=== PATIENT | male | born 1935 | race Asian ===

== ENCOUNTER 2019-05-12 03:30 | Emergency (ER) | payer MEDICAID, OTHER ==
[~2019-05-12] VITALS: Ht 170.2 cm; Wt 56.8 kg
[2019-05-12] MEDS ORDERED: ASPI81 PO (03:44)
[2019-05-12] MEDS ORDERED: ATOR-2 PO (03:44)
[2019-05-12] MEDS ORDERED: LOSA50TA64 PO (03:44)
[2019-05-12 04:50] LABS: BASOPHILS % (AUTO) 0.7 % (0.0-2.0); EOSINOPHILS % (AUTO) 2.6 % (1.0-6.0); HEMOGLOBIN 13.6 g/dL (13.5-17.5); LYMPHOCYTES # (AUTO) 1.8 K/uL (1.0-4.8); MEAN CORPUSCULAR HEMOGLOBIN 30.7 pg (26.0-34.0); MEAN CORPUSCULAR HGB CONC 32.4 G/dL (31.0-37.0); MEAN CORPUSCULAR VOLUME 95 fL (80-100); MONOCYTES # (AUTO) 0.7 K/uL (0.1-1.0); MONOCYTES % (AUTO) 8.9 % (2.0-9.0); NEUTROPHILS # (AUTO) 5.2 K/uL (1.8-7.7); NEUTROPHILS % (AUTO) 64.8 % (40.0-70.0); PLATELET COUNT (AUTO) 314 K/uL (150-450); RED BLOOD CELL COUNT(AUTO) 4.44 MIL/uL (4.50-5.90); RED CELL DISTRIBUTION WIDTH 13.2 % (11.5-14.5)
[2019-05-12 04:58] LABS: CALCIUM, TOTAL 9.3 mg/dL (8.8-10.5); CREATININE 1.38 mg/dL (0.60-1.30); POTASSIUM 4.1 mmol/L (3.5-5.1)
[2019-05-12 05:02] LABS: INR 0.9 (0.9-1.1); PROTHROMBIN TIME 9.8 SEC (9.4-11.6)
[2019-05-12 05:04] LABS: ALBUMIN 3.4 g/dL (3.4-5.0); BILIRUBIN,TOTAL 0.3 mg/dL (0.1-1.0); TOTAL PROTEIN, SERUM 7.6 g/dL (6.4-8.2)
[2019-05-12 05:33] LABS: APPEARANCE,URINE CLEAR (CLEAR); BILIRUBIN,URINE NEGATIVE (NEGATIVE); GLUCOSE, URINE (UA) NEGATIVE (NEGATIVE); KETONES,URINE NEGATIVE (NEGATIVE); LEUKOCYTE ESTERASE ,URINE NEGATIVE (NEGATIVE); NITRATE,URINE NEGATIVE (NEGATIVE); OCCULT BLOOD,URINE NEGATIVE (NEGATIVE); PROTEIN,URINE NEGATIVE (NEGATIVE); UROBILINOGEN,URINE 0.2 mg/dL (<=1.0)
[2019-05-12] MEDS ORDERED: LOSARTAN POTASSIUM 50 MG TABLET PO ONE (06:15)
[2019-05-12] MEDS ORDERED: PERTUSS(ACELL),DIPH,TET VAC/PF 0.5 ML VIAL IM ONE (06:15)
[2019-05-12] MEDS ORDERED: HydrALAZINE HCL 20 MG/ML VIAL IVP ONE (10:30)
[2019-05-12 11:01] VITALS: BP 184/94
== END 2019-05-12 11:15 | disposition home or self-care (01) ==
LOC: EMS 03:34
DX: S01.81XA Laceration without foreign body of other part of head, initial encounter (principal); M25.512 Pain in left shoulder; E78.00 Pure hypercholesterolemia, unspecified; I10 Essential (primary) hypertension; F03.90 Unspecified dementia, unspecified severity, without behavioral disturbance, psychotic disturbance, mood disturbance, and anxiety; F17.210 Nicotine dependence, cigarettes, uncomplicated; Z79.899 Other long term (current) drug therapy; W18.39XA Other fall on same level, initial encounter; Y93.89 Activity, other specified; Y92.89 Other specified places as the place of occurrence of the external cause; Y99.8 Other external cause status
CPT/HCPCS: 12011; 36415; 70450; 71045; 73030; 80053; 81003; 82550; 84484; 85025; 85610; 85730; 90471; 90715; 93005; 93970; 96374; 99284; J0360

== ENCOUNTER 2022-08-23 20:20 | Emergency (ER) | payer OTHER ==
[~2022-08-23] VITALS: Ht 167.6 cm; Wt 59.1 kg
[~2022-08-23 20:20] MED LIST: ASPI-1450 PO; ATOR-2 PO; LOSA-382 PO
[2022-08-23] MEDS ORDERED: ICOS1CAP2 PO (20:35)
[2022-08-23] MEDS ORDERED: SIMV-46 PO (20:35)
[2022-08-23] MEDS ORDERED: NIFE30TA98 PO (20:35)
[2022-08-23] MEDS ORDERED: HYDROCODONE/ACETAMINOPHEN 5-325 MG TABLET PO ONE (21:00)
[2022-08-23] MEDS ORDERED: CloNIDine HCL 0.1 MG TABLET PO ONE (21:30)
[2022-08-23] MEDS ORDERED: TRAM-559 PO (22:08)
[2022-08-23 22:15] VITALS: BP 155/77
== END 2022-08-23 22:42 | disposition home or self-care (01) ==
LOC: EMS 20:21
DX: M25.552 Pain in left hip (principal); F03.90 Unspecified dementia, unspecified severity, without behavioral disturbance, psychotic disturbance, mood disturbance, and anxiety; E78.00 Pure hypercholesterolemia, unspecified; I10 Essential (primary) hypertension; F17.210 Nicotine dependence, cigarettes, uncomplicated
CPT/HCPCS: 73503; 99283